=== PATIENT | male | born 1980 | race Caucasian/White ===

== ENCOUNTER 2017-10-16 13:40 | Emergency (ER) | payer SELFPAY ==
[2017-10-16 13:45] VITALS: BP 151/76; PULSE 92; RESP 16; TEMP 37; O2SAT 97
--- NOTE | 2017-10-16 13:52 | ED.GENADUL ---
Disposition Clinical Impression: Acute maxillary sinusitis Disposition: HOME Condition: Good Instructions: Sinusitis (ED) Additional Instructions: Home to rest. Take antibiotics as prescribed for the full course. Return if you develop worsening symptoms or any other acute concerns Prescriptions: Amoxicillin 875/Clav. 125 [Augmentin 875-125 Tablet] 1 each PO BID #20 tab Medical Decision Making - Medical Decision Making 29-year-old male presents with signs and symptoms and previous history of acute maxillary sinus infection. His exam does not reveal evidence of meningitis, mass, asymmetric swelling. Patient will be treated with a course of Augmentin. I discussed home management as well as return precautions to the ER with him prior to discharge. History of Present Illness - General Chief complaint: FacialProb Stated complaint: SINUS INFECTION Time Seen by Provider: 10/16/17 13:48 Source: patient, RN notes reviewed Mode of arrival: ambulatory Limitations: no limitations - History of Present Illness Initial comments: Sinus pain and pressure: 37-year-old male presents with days of constant, bilateral, maxillary sinus pain and pressure consistent with previous sinus infection. States had recurrent episodes over the years. He most recently treated with penicillin 3 months ago with improvement. -: days(s) Location: face Radiation: non-radiation Severity scale (1-10): 4 Quality: aching Consistency: constant Improves with: rest Worsens with: none Associated Symptoms: denies other symptoms - Related Data Amoxicillin 875/Clav. 125 [Augmentin 875-125 Tablet] 1 each PO BID #20 tab 10/16/17 Allergies Allergy/AdvReac Type Severity Reaction Status Date / Time No Known Allergies Allergy Unverified 10/16/17 13:47 Review of Systems Other: 6 systems reviewed, otherwise negative Past Medical History - Past Medical History Medical history: no medical history Surgical history: no surgical history - Social History Alcohol use: none Drug use: none General Exam - General Limitations: no limitations General appearance: alert, in no apparent distress - Head Head exam: Present: atraumatic, normocephalic - ENT ENT exam: Present: mucous membranes dry, TM's normal bilaterally, other (Maxillary sinuses tender to percussion by) - Neck Neck exam: Present: normal inspection, full ROM. Absent: tenderness - Respiratory Respiratory exam: Present: normal lung sounds bilaterally. Absent: respiratory distress - Cardiovascular Cardiovascular Exam: Present: regular rate, normal rhythm - GI/Abdominal GI/Abdominal exam: Present: soft. Absent: distended, tenderness - Extremities Exam Extremities exam: Present: normal inspection, full ROM - Neurological Exam Neurological exam: Present: alert, oriented X3 - Psychiatric Psychiatric exam: Present: normal affect, normal mood - Skin Skin exam: Present: warm, dry, intact Course Vital Signs - 24 hr 10/16/17 13:45 Temperature 37.0 C Pulse 92 H Respiratory 16 Rate Blood Pressure 151/76 Pulse Oximetry 97
== END 2017-10-16 13:57 | disposition home or self-care (01) ==
PROVIDERS: Emergency Provider Emergency Medicine
DX: J01.01 Acute recurrent maxillary sinusitis (principal)
CPT/HCPCS: 99283

== ENCOUNTER 2018-05-17 11:46 | Emergency (ER) | payer OTHER, SELFPAY ==
[2018-05-17 11:53] VITALS: BP 151/88; PULSE 75; RESP 20; TEMP 36.8; O2SAT 97
--- NOTE | 2018-05-17 11:53 | DI.RAD_ITS ---
SYMPTOMS/DIAGNOSIS: PAIN, S/P FALL LEFT THUMB: Comparison is made with [id number]. No fracture or dislocation is seen. IMPRESSION: Negative left thumb. LEFT WRIST: No fracture or dislocation is seen. IMPRESSION: Negative left wrist.
--- NOTE | 2018-05-17 11:53 | W.ED.GENAD ---
Discharge Plan Disposition Patient Disposition: HOME Condition: Stable Discharge Details Chief Complaint: Orthopedic Clinical Impression: Left wrist sprain, Left thumb sprain Primary Care Provider: None,None ED Provider: Mohit Pulliam Home Meds and New Rx's Prescriptions: No Action No Known Home Meds RF: 0 Discharge Instructions Instructions: Wrist Sprain (ED) Additional Instructions: if pain continues by the end of the week see your primary care provider if you have new pain such as headaches, abdominal pain or back pain return to the emergency department Medical Decision Making 38 yo male who denies chronic medical problems comes in with left wrist pain and thumb pain. He states about an hour or so ago he was on his roof when he fell about 10-12 feet and landed on his feet and then his left wrist/hand. Denies hitting his head and has no loc. He has pain in the left wrist with full rom and no pain in the snuffbox so doubt scahpoid fx, will xray to eval for possible distal radius fx though unliekly given full rom. Has pain at the base of the left thumb with full rom and intact distal sensation, suspect sprain but will xray toe maurizio for fx. He has no back pain or midline tenderness so doubt lumbar fx. Has no pain in the legs even with walking so do not feel imaging of lower extremities indicated. Did not hit head and has no neck pain so do not feel head or c spin eimaging indicated xray negative on my read but I am going to place in thumb spica splint and advise he should wear it until pain free and if still in pain by the end of the week to see pcp. Full rom of the thumb so doubt tendon injury Differential Diagnosis sprain, strain, contusion HPI General Mode of arrival: ambulatory. Date/Time Provider Initiated Documentation: 05/17/18 11:50. Limitations to Documentation: no limitations. Information obtained by: patient. History of Present Illness 38 year old M presents to the emergency department with the chief complaint of left wrist/thumb pain, described as moderate, and is localized to the left and upper extremity. Patient reports no radiation. Patient started experiencing this hour(s) (1) and it has been constant. No relieving factors improve symptom(s), No exacerbating factors reported . Patient did receive the following treatments prior to arrival, none Related Data Home Medications Medication Instructions Recorded Confirmed Unknown [No Known Home Meds] 05/17/18 05/17/18 Allergies Allergy/AdvReac Type Severity Reaction Status Date / Time No Known Allergies Allergy Unverified 05/17/18 11:55 Review of Systems Review of Systems All systems reviewed & are unremarkable except as noted in HPI and below Constitutional Denies chills and Denies fever(s) ENT Denies change in voice Cardiovascular Denies chest pain and Denies dyspnea Respiratory Denies cough and Denies dyspnea Gastrointestinal Denies abdominal pain, Denies nausea and Denies vomiting Genitourinary Denies dysuria Musculoskeletal Denies joint swelling Integumentary/Breasts Denies rash [facility] Social History Smoking/Tobacco Use Status: Current every day Tobacco Type: cigarettes Alcohol Intake: current Alcohol Intake frequency: holidays/special occasions only Drug use: Socially Substance use type: marijuana Do you feel safe at home: Yes Do you feel safe in your relationship?: Yes Exam Const General: no acute distress Orientation: alert HENMT Head: normal to inspection Ears: external ears normal General nose exam: external nose normal Mouth: moist mucous membranes Eyes General: appearance normal, both eyes and all related structures Neck Neck: normal visual inspection Resp Effort & Inspection: normal respiratory effort and able to speak in complete sentences Cardio Rate: regular rate Skin General skin exam: no rashes or lesions noted Neuro General: alert and oriented x3 Extrem General: normal to inspection Psych Mental Status: mental status grossly normal
--- NOTE | 2018-05-17 11:59 | ED.GENADUL_ITS ---
Discharge Plan Disposition Patient Disposition: HOME Condition: Stable Discharge Details Chief Complaint: Orthopedic Clinical Impression: Left wrist sprain, Left thumb sprain Primary Care Provider: None,None ED Provider: Mohit Pulliam Home Meds and New Rx's Prescriptions: No Action No Known Home Meds RF: 0 Discharge Instructions Instructions: Wrist Sprain (ED) Additional Instructions: if pain continues by the end of the week see your primary care provider if you have new pain such as headaches, abdominal pain or back pain return to the emergency department Medical Decision Making 38 yo male who denies chronic medical problems comes in with left wrist pain and thumb pain. He states about an hour or so ago he was on his roof when he fell about 10-12 feet and landed on his feet and then his left wrist/hand. Denies hitting his head and has no loc. He has pain in the left wrist with full rom and no pain in the snuffbox so doubt scahpoid fx, will xray to eval for possible distal radius fx though unliekly given full rom. Has pain at the base of the left thumb with full rom and intact distal sensation, suspect sprain but will xray toe maurizio for fx. He has no back pain or midline tenderness so doubt lumbar fx. Has no pain in the legs even with walking so do not feel imaging of lower extremities indicated. Did not hit head and has no neck pain so do not feel head or c spin eimaging indicated xray negative on my read but I am going to place in thumb spica splint and advise he should wear it until pain free and if still in pain by the end of the week to see pcp. Full rom of the thumb so doubt tendon injury Differential Diagnosis sprain, strain, contusion HPI General Mode of arrival: ambulatory . Date/Time Provider Initiated Documentation: 05/17/18 11:50 . Limitations to Documentation: no limitations . Information obtained by: patient . History of Present Illness 38 year old M presents to the emergency department with the chief complaint of left wrist/thumb pain, described as moderate, and is localized to the left and upper extremity. Patient reports no radiation. Patient started experiencing this hour(s) (1) and it has been constant. No relieving factors improve symptom(s), No exacerbating factors reported . Patient did receive the following treatments prior to arrival, none Related Data Home Medications Medication Instructions Recorded Confirmed Unknown [No Known Home Meds] 05/17/18 05/17/18 Allergies Allergy/AdvReac Type Severity Reaction Status Date / Time No Known Allergies Allergy Unverified 05/17/18 11:55 Review of Systems Review of Systems All systems reviewed & are unremarkable except as noted in HPI and below Constitutional Denies chills and Denies fever(s) ENT Denies change in voice Cardiovascular Denies chest pain and Denies dyspnea Respiratory Denies cough and Denies dyspnea Gastrointestinal Denies abdominal pain, Denies nausea and Denies vomiting Genitourinary Denies dysuria Musculoskeletal Denies joint swelling Integumentary/Breasts Denies rash [facility] Social History Smoking/Tobacco Use Status: Current every day Tobacco Type: cigarettes Alcohol Intake: current Alcohol Intake frequency: holidays/special occasions only Drug use: Socially Substance use type: marijuana Do you feel safe at home: Yes Do you feel safe in your relationship?: Yes Exam Const General: no acute distress Orientation: alert HENMT Head: normal to inspection Ears: external ears normal General nose exam: external nose normal Mouth: moist mucous membranes Eyes General: appearance normal, both eyes and all related structures Neck Neck: normal visual inspection Resp Effort & Inspection: normal respiratory effort and able to speak in complete sentences Cardio Rate: regular rate Skin General skin exam: no rashes or lesions noted Neuro General: alert and oriented x3 Extrem General: normal to inspection Psych Mental Status: mental status grossly normal
[2018-05-17 12:33] VITALS: BP 151/88; PULSE 75; RESP 20; TEMP 36.8; O2SAT 97
== END 2018-05-17 12:41 | disposition home or self-care (01) ==
LOC: ER 12:52
PROVIDERS: Emergency Provider Emergency Medicine
DX: S63.502A Unspecified sprain of left wrist, initial encounter (principal); S63.602A Unspecified sprain of left thumb, initial encounter; W13.2XXA Fall from, out of or through roof, initial encounter
CPT/HCPCS: 99283; 73110; 73140; 99282; L3807

== ENCOUNTER 2020-10-30 08:32 | Emergency (ER) | payer SELFPAY ==
[2020-10-30 08:36] VITALS: BP 144/86; PULSE 73; RESP 18; TEMP 37.1; O2SAT 99
--- NOTE | 2020-10-30 08:45 | DI.RAD_ITS ---
Exam(s) XR PORTABLE CHEST AP EXAM: XR PORTABLE CHEST AP CLINICAL HISTORY: PUI, Cough, r/O Pneumonia TECHNIQUE: 2D digital imaging was performed. COMPARISON: CR CHEST 2 VIEWS PA,LAT from 01/03/2016 FINDINGS: LUNGS: Clear. No pleural abnormality seen. HEART: Normal. MEDIASTINUM: Normal. BONES: Unremarkable. IMPRESSION: No acute pulmonary findings. DATA REPOSITORY: RADIATION DOSE DELIVERED:
--- NOTE | 2020-10-30 08:49 | ED.GENADUL_ITS ---
Discharge Plan Disposition Patient Disposition: HOME Condition: Stable Discharge Details Clinical Impression: Upper respiratory infection, viral Primary Care Provider: None,None ED Provider: Erica Garrido Home Meds and New Rx's Prescriptions: New benzonatate [Tessalon Perles] 100 mg capsule 100 mg PO TID PRN (Reason: cough) Qty: 14 RF: 0 Discharge Instructions Instructions: Albuterol (By breathing), How to Stop Smoking (ED), Upper Respiratory Infection (ED) Additional Instructions: Follow up with primary care provider in 3-5 days. Return to ED sooner if any worsening or concerns. Increase oral fluids. Please take Tylenol or Ibuprofen with food every 4-6 hours as needed for pain and swelling. Use inhaler 1 or 2 puffs every 4-6 hours as needed for wheezing or shortness of breath. Take the cough medicine as directed. Try to stop smoking. Stand Alone Forms: PENDING COVID-19 TESTING Medical Decision Making 40-year-old male presents the ER with upper respiratory symptoms x3 weeks including cough, intermittent fever. Patient reports productive cough with yellow sputum. He is a daily smoker. He has been taking ibuprofen at home. He also reports a child who came home with runny nose and quickly recovered. He is not vaccinated for Covid. Covid swab and chest x-ray ordered at this time. FINDINGS: LUNGS: Clear. No pleural abnormality seen. HEART: Normal. MEDIASTINUM: Normal. BONES: Unremarkable. IMPRESSION: No acute pulmonary findings. Patient discharged with instructions to follow-up with CP. Was given Tessalon Perles and albuterol inhaler here in department. He remained hemodynamically stable alert oriented with sats in the mid to upper 90s. Patient verbalized understanding. HPI General Mode of arrival: ambulatory . Date/Time Provider Initiated Documentation: 10/30/20 08:32 . Limitations to Documentation: no limitations . Information obtained by: patient and RN notes reviewed . HPI Narrative: 40-year-old male presents the ER with upper respiratory symptoms x3 weeks including cough, intermittent fever. Patient reports productive cough with yellow sputum. He is a daily smoker. He has been taking ibuprofen at home. He also reports a child who came home with runny nose and quickly recovered. He is not vaccinated for Covid. Related Data Home Medications Medication Instructions Recorded Confirmed benzonatate [Tessalon Perles] 100 mg PO TID PRN #14 cap 10/30/20 Previous Rx's Medication Instructions Recorded benzonatate [Tessalon Perles] 100 mg PO TID PRN #14 cap 10/30/20 Allergies Allergy/AdvReac Type Severity Reaction Status Date / Time No Known Allergies Allergy Unverified 10/30/20 08:47 General Stated Complaint: RespSymp FELISHA: 3 Review of Systems Constitutional Constitutional: Reports as per HPI and Reports fever(s) Cardiovascular Cardiovascular: Denies chest pain Respiratory Respiratory: Reports change in phlegm color, Reports chest congestion, Reports cough and Denies hemoptysis Gastrointestinal Gastrointestinal: Denies diarrhea, Denies nausea and Denies vomiting PFS Social History Smoking/Tobacco Use Status: Current every day Tobacco Type: cigarettes Smoking risk assessment performed?: Yes Alcohol Intake: current Alcohol Intake frequency: holidays/special occasions only Drug use: Socially Substance use type: marijuana Do you feel safe at home: Yes Do you feel safe in your relationship?: Yes Exam Narrative Exam Narrative: Constitutional: Alert and oriented x3. Appears stated age. Normal body habitus. Head: Normocephalic, no trauma. Eyes: Pupils PERRLA, Red reflex noted, EOM's intact. Eyelids symmetrical without lesions, discharge, or swelling. ENT: Bilateral TM's WNL, External ear normal to inspection, no mastoid TTP, swelling, or erythema, Nasal turbinates WNL, no nasal discharge. Normal dentition, Posterior pharynx WNL, no exudate. Chest: RRR, Normal S1, S2, distal pulses intact. Resp: Expiratory rhonchi noted bilateral lung bernal. Musculoskeletal: Normal gait, 5/5 strength to all four extremities. Skin: No suspicious rashes or lesions. Capillary refill less than 2 sec. Neurologic: Cranial nerves II-XII intact. Alert and oriented x 3. DTR's intact. Hematologic/Lymphatic: No ecchymosis, no lymphadenopathy. Course Vital Signs Vital signs: Vital Signs Temperature 37.1 C 10/30/20 08:36 Pulse 73 10/30/20 08:36 Respiratory Rate 18 10/30/20 08:36 Blood Pressure 144/86 H 10/30/20 08:36 Pulse Oximetry 99 10/30/20 08:36 Temperature 37.1 C 10/30/20 08:36 Temperature Source Skin 10/30/20 08:36 Pulse 73 10/30/20 08:36 Respiratory Rate 18 10/30/20 08:36 Respiratory Effort 10/30/20 08:44 Blood Pressure 144/86 H 10/30/20 08:36 Blood Pressure Position Sitting 10/30/20 08:36 Pulse Oximetry 99 10/30/20 08:36 Oxygen Delivery Method Room Air 10/30/20 08:36 Oxygen Flow Rate 0 10/30/20 08:36 Pain Level 5 10/30/20 08:36 Comment 10/30/20 08:36
[2020-10-30 08:55] LABS: Source Nasal/Nares
[2020-10-30] MEDS: Albuterol HFA 8 GM 60 PUFF INH IH (09:46)
[2020-10-30] MEDS: Benzonatate 100 MG CAP PO (09:46)
[2020-10-30] MEDS: Inhaler, Assist Device 1 EACH MC (09:48)
[2020-10-30 09:55] LABS: COVID-19 PCR Negative (Negative)
[2020-10-30 10:17] VITALS: BP 132/78; PULSE 76; RESP 18; O2SAT 97
== END 2020-10-30 10:09 | disposition home or self-care (01) ==
PROVIDERS: Emergency Provider Registered Nurse Emergency
DX: J06.9 Acute upper respiratory infection, unspecified (principal); B34.9 Viral infection, unspecified; R05 Cough; F17.210 Nicotine dependence, cigarettes, uncomplicated; Z20.822 Contact with and (suspected) exposure to COVID-19; Z03.818 Encounter for observation for suspected exposure to other biological agents ruled out
CPT/HCPCS: 87635; 99283; 71045

== ENCOUNTER 2024-01-12 16:11 | Emergency (ER) | payer OTHER, SELFPAY ==
[2024-01-12 16:16] VITALS: BP 136/88; PULSE 76; RESP 18; TEMP 36.8
--- NOTE | 2024-01-12 17:07 | DI.RAD_ITS ---
Exam(s) XR CHEST 2V PA LATERAL EXAM: XR CHEST 2V PA LATERAL CLINICAL HISTORY: cough TECHNIQUE: 2D digital imaging was performed. Two views. COMPARISON: CR XR PORTABLE CHEST AP from 10/30/2020 FINDINGS: HEART: Normal size. Aorta: Not dilated. PULMONARY VASCULATURE: Normal. MEDIASTINUM: Unremarkable. LUNGS: Clear. PLEURAL SPACE: No pleural effusion or pneumothorax. BONE:Unremarkable for age. SOFT TISSUES: Unremarkable. IMPRESSION: No acute abnormality. DATA REPOSITORY: RADIATION DOSE DELIVERED:
[2024-01-12 17:09] LABS: COVID-19 PCR Negative (Negative); Influenza A PCR Negative (Negative); Influenza B PCR Negative (Negative); RSV PCR Negative (Negative); Source Nasopharynx
--- NOTE | 2024-01-12 17:37 | ED.GENADUL_ITS ---
Discharge Plan Disposition Patient Disposition: Home Condition: Stable Discharge Details Clinical Impression: URI (upper respiratory infection) Primary Care Provider: None,None ED Provider: Mohit Pulliam Home Meds and New Rx's Prescriptions: New prednisone 20 mg tablet 60 mg PO DAILY 4 Days Qty: 12 0RF doxycycline hyclate 100 mg tablet 100 mg PO BID Qty: 14 0RF Discharge Instructions Additional Instructions: Your x-ray and viral swab did not show concerning findings. If you are not improved with the medications prescribed follow-up with either primary care provider or express care. You can use the inhaler 1 to 2 puffs every 4 hours as needed If you feel more ill or have severe worsening shortness of breath return to the emergency department for reevaluation HPI General Mode of arrival: ambulatory . Date/Time Provider Initiated Documentation: 01/12/24 16:22 . Limitations to Documentation: no limitations . Information obtained by: patient . History of Present Illness 43 year old M presents to the emergency department with the chief complaint of cough, described as moderate, Patient started experiencing this week(s) (1) and it has been constant. No relieving factors improve symptom(s), No exacerbating factors reported . Patient notes cough and fever/chills; denies shortness of breath. Patient did receive the following treatments prior to arrival, none Related Data Home Medications ?Medication ?Instructions ?Recorded ?Confirmed doxycycline hyclate 100 mg tablet 100 mg PO BID #14 tabs 01/12/24 prednisone 20 mg tablet 60 mg (3 x 20 mg) PO DAILY 4 days 01/12/24 #12 tabs Previous Rx's ?Medication ?Instructions ?Recorded doxycycline hyclate 100 mg tablet 100 mg PO BID #14 tabs 01/12/24 prednisone 20 mg tablet 60 mg (3 x 20 mg) PO DAILY 4 days 01/12/24 #12 tabs Allergies Allergy/AdvReac Type Severity Reaction Status Date / Time No Known Allergies Allergy Unverified 01/12/24 16:18 General Stated Complaint: RespSymp FELISHA: 3 Review of Systems All systems reviewed & are unremarkable except as noted in HPI and below Constitutional Constitutional: Reports chills and Denies weakness Cardiovascular Cardiovascular: Denies chest pain and Denies dyspnea Respiratory Respiratory: Reports cough, Denies dyspnea and Reports wheezing Gastrointestinal Gastrointestinal: Denies abdominal pain and Denies vomiting Neurologic Neurologic: Denies weakness Allergic/Immunologic Allergic/Immunologic: Reports wheezing Exam Const General: no acute distress Orientation: alert HENIN Head: normal to inspection Ears: external ears normal General nose exam: external nose normal Mouth: moist mucous membranes Eyes General: appearance normal, both eyes and all related structures Neck Neck: normal visual inspection Resp Effort & Inspection: normal respiratory effort and able to speak in complete sentences Auscultation: wheezes Cardio Jugular venous pressure: no JVD Rate: regular rate Heart Sounds: no murmurs Skin General skin exam: no rashes or lesions noted Neuro General: patient alert and patient oriented x3 Extrem General: normal to inspection Psych Mental Status: mental status grossly normal Course Vital Signs Vital signs: Vital Signs Temperature 36.8 C 01/12/24 16:16 Pulse 76 01/12/24 16:16 Respiratory Rate 18 01/12/24 16:16 Blood Pressure 136/88 01/12/24 16:16 Temperature 36.8 C 01/12/24 16:16 Temperature Source Oral 01/12/24 16:16 Pulse 76 01/12/24 16:16 Respiratory Rate 18 01/12/24 16:16 Respiratory Effort Normal, Non-Labored 01/12/24 16:18 Blood Pressure 136/88 01/12/24 16:16 Lab/Test Results Lab/Test Results: Laboratory Tests Range/Units 01/12/24 16:29 COVID-19 Source Nasopharynx SARS-CoV-2 (PCR) (Negative) Negative Influenza Type A (PCR) (Negative) Negative Influenza Type B (PCR) (Negative) Negative RSV (PCR) (Negative) Negative Medical Decision Making 43-year-old male with a history of chronic smoking comes in with 1 week of productive cough, subjective chills and feeling wheezing. He says that this happens every once in a while and usually requires an inhaler and antibiotics. He also notes sinus pressure. He has had no chest pain. Get an x-ray and Fluvid done prior to my exam which shows no acute findings. He is well- appearing speaking in full sentences. He has clear lung sounds other than mild apical wheezing and intermittent harsh dry cough. Suspect URI but will treat with antibiotics can use as symptoms for a week and also has symptoms of sinusitis. I suspect that he has underlying possible COPD given his chronic smoking and given the mild apical wheezing will give him an inhaler and start him on prednisone as well. Given his well appearance do not feel any lab work is indicated. He will follow-up with his PCP or express care if he is not improving and return precautions given Differential Diagnosis Differential Diagnosis: URI, bronchitis, sinusitis Lab Data Lab results reviewed: Yes I reviewed the patient's lab results. Quality:SDOH Health Related Social Needs: No Data to Display PFSH All Active Problems (Updated 01/12/24 @ 17:40 by Mohit Pulliam MD) URI (upper respiratory infection) (Acute) Upper respiratory infection, viral (Acute) Acute sinusitis (Acute) Social History Smoking/Tobacco Use Status: Current every day Tobacco Type: cigarettes Smoking risk assessment performed?: Yes Alcohol Intake: current Alcohol Intake frequency: holidays/special occasions only Drug use: Socially Substance use type: marijuana Housing: house Do you feel safe at home: Yes Do you feel safe in your relationship?: Yes
[2024-01-12 17:49] VITALS: BP 136/88; PULSE 76; RESP 18; TEMP 36.8; O2SAT 98
[2024-01-12] MEDS: predniSONE 20 MG TAB 60 MG PO (17:51)
[2024-01-12] MEDS: Albuterol HFA 8 GM 60 PUFF INH IH (17:51)
[2024-01-12] MEDS: Doxycycline Hyclate 100 MG CAP PO (17:51)
[2024-01-12 18:03] VITALS: BP 150/89; PULSE 65; RESP 20; O2SAT 98
== END 2024-01-12 18:34 | disposition home or self-care (01) ==
PROVIDERS: Emergency Provider Emergency Medicine
DX: J06.9 Acute upper respiratory infection, unspecified (principal); F17.210 Nicotine dependence, cigarettes, uncomplicated
CPT/HCPCS: 87637; 99284; 71046; J7512